=== PATIENT | female | born 2005 | race Hispanic/Latino ===

== ENCOUNTER 2024-03-08 06:13 | Day surgery (SDC) | payer MEDICAID ==
[~2024-03-08] VITALS: Ht 160 cm; Wt 72.6 kg
[2024-03-08] VITALS (10 sets, daily range): BP systolic 111–135; BP diastolic 60–73; PULSE 60–81; RESP 14–19
[~2024-03-08 06:13] MED LIST: GUAN3TAB2 PO; SERT-440 PO
[2024-03-08] MEDS: 0.9%NACL 1000ML 1,000 ML IV ONE (07:06)
[2024-03-08] MEDS ORDERED: ALBU90AE2 IH (07:12)
[2024-03-08] MEDS ORDERED: LIDOCAINE PF 100MG/5ML (2%) SYRINGE 5ML ONE (08:05)
[2024-03-08] MEDS ORDERED: MIDAZOLAM HCL 1 MG/ML 2ML VIAL ONE (08:05)
[2024-03-08] MEDS ORDERED: PROPOFOL 10 MG/ML 20ML VIAL IV ONE ×2 (08:05→08:14)
== END 2024-03-08 09:15 | disposition home or self-care (01) ==
LOC: DAH 06:13
PROVIDERS: ATTEND Surgery
DX: R12 Heartburn (principal); K29.70 Gastritis, unspecified, without bleeding; K21.9 Gastro-esophageal reflux disease without esophagitis; J45.909 Unspecified asthma, uncomplicated; K22.89 Other specified disease of esophagus; K91.1 Postgastric surgery syndromes; F41.9 Anxiety disorder, unspecified; F32.A Depression, unspecified; Z98.84 Bariatric surgery status; E66.01 Morbid (severe) obesity due to excess calories; Z79.899 Other long term (current) drug therapy
CPT/HCPCS: 81025; 43239; J7030 ×2; J3490 ×3; J2250; A4620; A4215 ×2; A4223; A7002; A4222; A4663; A4606; J2001; J2704